=== PATIENT | male | born 1960 | race Caucasian/White ===

== ENCOUNTER 2018-06-07 14:56 | Emergency (ER) | payer OTHER ==
[2018-06-07 16:02] VITALS: BP 126/77
--- NOTE | 2018-06-07 16:24 | UC ---
Ear Complaint HPI - HPI Summary HPI Summary: 58 year old male presents with onset of right ear pain 4 days ago. States has been swimming a lot and used an over the counter ear drop for swimmers ear. Initially improved but today noted increased pain and decreased hearing. Denies fever, chills, ear drainage, nasal congestion/drainage, sore throat cough. - History of Current Complaint Chief Complaint: UCEar Stated Complaint: RIGHT EAR PAIN Time Seen by Provider: 06/07/18 14:59 Hx Obtained From: Patient Onset/Duration: Gradual Onset Severity Initially: Mild Severity Currently: Moderate Pain Intensity: 4 Aggravating Factors: Nothing Alleviating Factors: OTC Meds Associated Signs/Symptoms: Positive: Hearing Loss - Allergies/Home Medications Allergies/Adverse Reactions: Allergies Allergy/AdvReac Type Severity Reaction Status Date / Time No Known Allergies Allergy Verified 05/18/16 14:16 Home Medications: Home Medications Ibuprofen 600 mg PO Q6H 06/07/18 [History Confirmed 06/07/18] PMH/Surg Hx/FS Hx/Imm Hx - Additional Past Medical History Additional PMH: noncontributory Previously Healthy: Yes - Surgical History Surgical History: None Surgery Procedure, Year, and Place: denies - Family History Known Family History: Positive: None - Social History Occupation: Employed Full-time Lives: With Family Alcohol Use: None Substance Use Type: None Smoking Status (MU): Never Smoked Tobacco Review of Systems Constitutional: Negative Skin: Negative ENT: Ear Ache, Other - decreased hearing Respiratory: Negative Is Patient Immunocompromised?: No All Other Systems Reviewed And Are Negative: Yes Physical Exam Triage Information Reviewed: Yes Appearance: Well-Appearing, No Pain Distress, Well-Nourished Vital Signs: Initial Vital Signs Temp 98.1 F 06/07/18 15:56 Pulse 90 06/07/18 15:56 Resp 15 06/07/18 15:56 BP 126/77 06/07/18 15:56 Pulse Ox 98 06/07/18 15:56 Vital Signs Reviewed: Yes Eyes: Positive: Conjunctiva Clear ENT: Positive: Pharynx normal, Uvula midline, Other - Tenderness to right tragus. Erythema with moderate swelling to right external auditory canal. Unable to visualize right TM. Left tragus non-tender. External auditory canal with cerumen impaction. Unable to visualize TM.. Negative: Nasal congestion, Nasal drainage Neck: Positive: Supple, Nontender, No Lymphadenopathy Respiratory: Positive: Lungs clear, Normal breath sounds, No respiratory distress Cardiovascular: Positive: RRR, No Murmur Skin Exam: Normal Re-Evaluation - Re-Evaluation First Eval Re-Evaluation Time: 16:30 Change: Improved Comment: Post-irrigation patient reports improved hearing. Exam reveals a clear external auditory canal with erythema or edema. TM intact, opaque, with good cone of light. Ear Complaint Course/Dx - Differential Dx/Diagnosis Differential Diagnosis/HQI/PQRI: Cerumen Impaction, Otitis Externa, Otitis Media Provider Diagnoses: right otitis externa, left cerumen impaction Discharge - Sign-Out/Discharge Documenting (check all that apply): Patient Departure - Discharge Plan Condition: Stable Disposition: HOME Prescriptions: Ciproflox/Dexameth OTIC.SUSP* [Ciprodex OTIC.SUSP*] 4 drop .SEE ORDER BID #1 btl Patient Education Materials: Otitis Externa (DC), Cerumen Impaction (ED) Referrals: No Primary Care Phys,NOPCP [Primary Care Provider] - Additional Instructions: Use Ciprodex otic 4 drops into right ear twice a day for 7 days. Over the counter acetaminophen (Tylenol) or ibuprofen (Advil, Motrin) as needed for pain. Avoid getting water into your right ear. To help avoid the ear wax build up, avoid putiing anything into ear such as Q- tips. If you have problems with a lot of ear wax, instilling 2-3 drops of mineral oil into your ear 2 times a week can help soften the wax and promote drainage. Follow up with your primary care provider in 1 week if no improvement in symptoms. Seek immediate medical attention in the emergency room for fever greater than 100.5 F despite taking acetaminophen or ibuprofen, have severe headache, blood or drainage from ear, dizziness, or any worsening of symptoms. - Billing Disposition and Condition Condition: STABLE Disposition: Home
== END 2018-06-07 16:38 | disposition home or self-care (01) ==
LOC: UCCORT 14:56
DX: H60.91 Unspecified otitis externa, right ear (principal); H61.22 Impacted cerumen, left ear
CPT/HCPCS: 99213; G0463

== ENCOUNTER 2019-03-09 07:16 | Emergency (ER) | payer OTHER ==
[2019-03-09 07:35] VITALS: BP 138/93
--- NOTE | 2019-03-09 07:58 | UC ---
Abdominal Pain Male HPI - HPI Summary HPI Summary: 58 yo male with upper abd pain and "indent alternating with bulge" Has been rough housing with his kids - History of Current Complaint Chief Complaint: UCGeneralIllness Stated Complaint: BULGE ON ABD Time Seen by Provider: 03/09/19 07:49 Hx Obtained From: Patient Onset/Duration: Gradual Onset, Lasting Days Timing: Constant Severity Initially: Mild Severity Currently: Mild Pain Intensity: 0 Pain Scale Used: 0-10 Numeric Location: Other - see imgae Radiates: No Character: Aching Aggravating Factor(s): Movement Alleviating Factor(s): Rest Associated Signs And Symptoms: Positive: Negative Male Torso: 1 - pain/bulge... a few CM below xiphoid process - Allergies/Home Medications Allergies/Adverse Reactions: Allergies Allergy/AdvReac Type Severity Reaction Status Date / Time No Known Allergies Allergy Verified 03/09/19 07:29 PMH/Surg Hx/FS Hx/Imm Hx Previously Healthy: Yes - Surgical History Surgical History: None Surgery Procedure, Year, and Place: denies - Family History Known Family History: Positive: Hypertension - Social History Alcohol Use: None Substance Use Type: None Smoking Status (MU): Former Smoker When Did the Patient Quit Smoking/Using Tobacco: 2006 Review of Systems All Other Systems Reviewed And Are Negative: Yes Constitutional: Positive: Negative Skin: Positive: Negative Eyes: Positive: Negative ENT: Positive: Negative Respiratory: Positive: Negative Cardiovascular: Positive: Negative Gastrointestinal: Positive: Abdominal Pain Genitourinary: Positive: Negative Motor: Positive: Negative Neurovascular: Positive: Negative Musculoskeletal: Positive: Negative Neurological: Positive: Negative Psychological: Positive: Negative Physical Exam Triage Information Reviewed: Yes Appearance: Well-Appearing, No Pain Distress, Well-Nourished Vital Signs: Initial Vital Signs Temp 98.6 F 03/09/19 07:29 Pulse 64 03/09/19 07:29 Resp 18 03/09/19 07:29 BP 138/93 03/09/19 07:29 Pulse Ox 97 03/09/19 07:29 Vital Signs Reviewed: Yes Eyes: Positive: Conjunctiva Clear ENT: Positive: Hearing grossly normal. Negative: Nasal congestion, Nasal drainage, Trismus, Muffled voice, Hoarse voice Neck: Positive: Supple, Nontender Respiratory: Positive: Lungs clear, Normal breath sounds, No respiratory distress Cardiovascular: Positive: RRR, No Murmur Abdomen Description: Positive: Nontender - slight tender defect in abd wall ( see image) bulges with straing, Soft, Hernia @ - see image. Negative: CVA Tenderness (R), CVA Tenderness (L), Distended, Guarding, Hepatomegaly, McBurney' s Point Tenderness, Peritoneal Signs, Pulsatile Mass, Splenomegaly Bowel Sounds: Positive: Present Musculoskeletal: Positive: ROM Intact, No Edema Neurological: Positive: Alert Psychological Exam: Normal Skin Exam: Normal Abd Pain Male Course/Dx - Differential Dx/Clinical Impression Provider Diagnosis: Ventral hernia, Elevated BP without diagnosis of hypertension Discharge - Sign-Out/Discharge Documenting (check all that apply): Patient Departure All imaging exams completed and their final reports reviewed: No Studies - Discharge Plan Condition: Stable Disposition: HOME Patient Education Materials: Ventral Hernia (ED) Referrals: Beau Rosa MD [Medical Doctor] - As Soon As Possible () Additional Instructions: no heavy lifting recheck for new or worsening symptoms - Billing Disposition and Condition Condition: STABLE Disposition: Home
== END 2019-03-09 08:05 | disposition home or self-care (01) ==
LOC: UCCORT 07:16
DX: K43.9 Ventral hernia without obstruction or gangrene (principal); R03.0 Elevated blood-pressure reading, without diagnosis of hypertension; Z87.891 Personal history of nicotine dependence
CPT/HCPCS: 99211; G0463

== ENCOUNTER → 2019-11-16 07:11 | Day surgery (SDC) | payer OTHER ==
--- NOTE | 2019-11-05 12:01 | HP ---
AMENDED REPORT NOW INCLUDES DESIGNATED COSIGNER CC: DOMENICO Masters at [facility] PREOPERATIVE HISTORY AND PHYSICAL: DATE OF ADMISSION: This patient is scheduled for same day surgery admission by Dr. Rosa on 11/16/19. DATE OF PREOPERATIVE HISTORY AND PHYSICAL: 11/04/19 ATTENDING SURGEON: Dr. Beau Rosa * (dictated by Olimpia Benites NP) CHIEF COMPLAINT: Ventral hernia. HISTORY OF PRESENT ILLNESS: The patient is a 59-year-old obese male who has noticed a bulge in his upper abdomen for approximately 1 year. More recently he reported it to be getting a little bigger and causing some discomfort especially when "wrestling round" with his children. 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 He denies any signs or symptoms to suggest incarceration or strangulation. He states that he has been trying to lose weight to help control his type 2 diabetes. He states that he lost around 20 [address] spring[address] Dr. Rosa examined the patient and noted a small midline ventral hernia as well as diastasis. Dr. Rosa has recommended robotic ventral hernia repair with mesh as a same day surgery procedure under general anesthesia. Dr. Rosa described the nature of the surgical procedure, the rationale for the procedure, the relevant risks and benefits and today I reviewed the typical postoperative care and recovery. The patient has had a chance to ask questions and stated that he understands the information and is satisfied with the answers given to his questions. He will sign surgical consent on the day of surgery. PAST MEDICAL HISTORY: Type 2 diabetes, obesity. PAST SURGICAL HISTORY: [place] teeth extraction. MEDICATIONS: 1. Usfc-[id number] magnesium supplement 1 tablet daily. 2. Vitamin B complex 1 tablet daily. 3. Milk thistle daily and I have asked the patient to hold that 1 week preoperatively. ALLERGIES: No known drug allergies. FAMILY HISTORY: Parents are alive and well. No known anesthesia complications , bleeding tendencies or clotting disorders. SOCIAL HISTORY: He is and is employed as a sailing master; he quit smoking 12 years ago and he also chewed tobacco; he denies the use of alcohol or other substances. REVIEW OF SYSTEMS: Constitutional: No fevers or chills, excessive fatigue or significant weight loss. General: No history of deep vein thrombosis or pulmonary embolism; no bleeding tendencies or history of blood transfusions. He does not think he has ever received general anesthesia. Endocrine: Type 2 diabetes that he is trying to control with diet and exercise. He does check fingersticks and reports that recently the morning fingerstick has been around 150 and he is trying to alter his diet to lower his fingerstick blood sugar. Respiratory: No chronic cough or dyspnea on exertion. Cardiovascular: No anginal chest pain or palpitations. Gastrointestinal: As described in history of present illness. No nausea, vomiting, chronic constipation, or change in bowel habits. Genitourinary: No dysuria. Musculoskeletal: Normal strength and tone. Integumentary: No chronic rashes or skin changes. Neurologic: No headache or blurred vision or areas of focal weakness or numbness. Psychiatric : No reported anxiety, depression, or insomnia. PHYSICAL EXAMINATION GENERAL SURVEY: The patient is a 59-year-old male obese, well developed, in no acute distress. VITAL SIGNS: Height 66 inches, weight 270 pounds, body mass index 43.6. Blood pressure 142/82, pulse 68 and regular, respiratory rate 18, temperature 98.1 tympanic. HEENT: Benign. NECK: Supple, no cervical lymphadenopathy. BACK: No CVA tenderness. LUNGS: Breath sounds bilaterally clear and equal. HEART: Regular rate and rhythm. No murmurs or rubs appreciated. ABDOMEN: Active bowel sounds, soft, nondistended, nontender, throughout. Palpation reveals a small midline ventral hernia as well as diastasis. The hernia is slightly tender and reducible. GENITALIA EXAM: Deferred. RECTAL EXAM: Deferred. EXTREMITIES: Warm without edema or skin ulceration. NEUROLOGIC: Alert and oriented x3. Steady gait. SKIN: Warm dry and intact. IMPRESSION: Ventral hernia. PLAN: Same day surgery admission to Dr. Rosa's service on 11/16/19 for robotic ventral hernia repair with mesh. OLIMPIA BENITES NP [id number]/[facility] #: [id number] [facility]
[~2019-11-16 07:11] MED LIST: Buffered Lidocaine 1% SYRIN* 1 ML/SYRINGE INTRADERM ONE; Bupivacaine 0.5%* 50 ML MDV VIAL ONE; Dexamethasone TAB* 4 MG ONE; Dexamethasone TAB* 4 MG PO ONE; DiMENhydriNATE IV* 50 MG/ML VIAL IV PUSH PRN; Famotidine IV* 10 MG/ML 2 ML (20 mg) IV ONE; Famotidine IV* 10 MG/ML 2 ML (20 mg) ONE; HYDROmorphone INJ1* 1 MG/ML SYRINGE IV PRN; KETAMINE HCL* 50 MG/ML 10 ML VIAL ONE; Ketorolac INJ* 30 MG/ML 1 ML VIAL ONE; Lactated Ringers 1000 ML Bag* 1,000 ML IV SCH; Lidocaine 2% PF * 5 ML VIAL ONE; Midazolam* 1 MG/ML 5 ML VIAL (5 MG) ONE; Naloxone* 0.4 MG/ML 1 ML VIAL IV PRN; Ondansetron ODT TAB* 4 MG ONE; Ondansetron ODT TAB* 4 MG PO ONE; PROCHLORPERAZINE INJ 5 MG/ML 2 ML VIAL IV PRN; PROCHLORPERAZINE INJ 5 MG/ML 2 ML VIAL ONE; Phenylephrine 40 MCG/ML SYRINGE ONE; Propofol* 10 MG/ML 20 ML BTL ONE; Rocuronium* 10 MG/ML VIAL ONE; Sugammadex * 200 MG/2 ML VIAL IV PUSH ONE; ceFAZolin 1 GM ADVAN(*) 1 GM ADDV.VIAL IVPB ONE; ceFAZolin 2 GM PREMIX in ORs 2 GM/50 ML BAG ONE; fentaNYL* 50 MCG/ML 2 ML VIAL (100 MCG VIAL) IV PRN; fentaNYL* 50 MCG/ML 2 ML VIAL (100 MCG VIAL) ONE; oxyCODONE TAB* 5 MG TAB PO PRN
[2019-11-16 11:31] VITALS: BP 117/58
--- NOTE | 2019-11-16 22:35 | OP ---
DATE OF OPERATION: 11/16/19 - [facility] DATE OF : 64 SURGEON: Beau Rosa MD [employer] SUPERVISOR: LACI Millard PRE-OP DIAGNOSIS: Ventral hernia. POST-OP DIAGNOSIS: Ventral hernia. OPERATIVE PROCEDURE: Repair of ventral hernia with mesh. INDICATION FOR PROCEDURE: Ventral hernia risks including but not limited to bleeding, infection, injury to intraabdominal content and recurrence of the hernia explained to the patient. The patient seemed to understand and agreed to procedure and all questions were answered. DESCRIPTION OF PROCEDURE: In the operating room in the supine position under general endotracheal anesthesia the abdomen was prepped and draped in sterile fashion. Timeout was performed indicating correct patient, correct procedure. A left upper quadrant Optiview trocar was placed under direct visualization of the camera, and pneumo-peritoneum was achieved at 12 mmHg. The camera was placed in the abdomen. The abdomen was scanned, there is no risk of injury from trocar placement. Robotic trocars were then replaced down along the left side of the abdomen under direct visualization of the camera and the Optiview was replaced with a robotic trocar. The patient was tilted slightly towards his right. Robot was brought and then docked, peritoneum was taken down using scissors and cautery robotically and the hernia content was removed along with the sac. The defect was closed with running 0-PDS barbed suture and the mesh was brought up and tagged to the center of the hernia site covering the hernia repair site and sutured in place with the same PDS suture. Peritoneum was then closed with 3-0 V-Loc suture. EBL minimal. Hemostasis was intact. Pneumoperitoneum was released from the abdomen. The trocars were removed. Skin was closed at each site using Monocryl and glue was applied as a cover to the skin. He tolerated the procedure well. He was extubated and taken to the recovery in stable condition. [id number]/[facility] #: [id number] BECKY
== END | disposition home or self-care (01) ==
LOC: OR 07:11
PROVIDERS: ATTEND Surgery
DX: K43.9 Ventral hernia without obstruction or gangrene (principal); E11.9 Type 2 diabetes mellitus without complications; E66.9 Obesity, unspecified; Z68.41 Body mass index [BMI] 40.0-44.9, adult
CPT/HCPCS: A9270-GY; C1781; J0690; J0780; J1885; J2250; J2704; J3010; J3490; J8540